=== PATIENT | male | born 1960 | race Caucasian/White ===

== ENCOUNTER 2025-05-31 14:24 | Outpatient (CLI) | payer MEDICARE, OTHER ==
--- NOTE | 2025-05-31 16:35 | RADIOLOGY REPORT ---
CLINICAL HISTORY: ANOSMIA TECHNIQUE: Routine multiplanar imaging of the brain was performed without gadolinium contrast. 15 mL of Clariscan was injected intravenously. COMPARISON: None FINDINGS: There is no abnormal restricted diffusion to suggest acute infarction. There are scattered T2 hyperintense foci within the white matter both cerebral hemispheres, which are most compatible with and minimal burden of nonspecific chronic small vessel ischemic change. There is no evidence for acute ischemic changes, mass, mass effect, or extra- axial fluid collection. There is no hydrocephalus or midline shift. The cerebral sulci and subarachnoid cisterns are not effaced. The imaged paranasal sinuses are clear. The globes are intact. The midline structures, including the corpus callosum, are unremarkable. The intracranial flow voids are maintained. There is no concerning post-contrast enhancement. IMPRESSION: No acute intracranial abnormality seen. No evidence for acute infarct. Minimal chronic small vessel ischemic changes.
[2025-05-31] MEDS ORDERED: GADOTERATE MEGLUMINE 7.5 MMOL/15 ML VIAL IV ONE (17:26)
== END 2025-05-31 23:59 | disposition home or self-care (01) ==
LOC: MRI 14:24
PROVIDERS: ATTEND Physician Assistant
DX: R43.0 Anosmia (principal)
CPT/HCPCS: 70553; A9575

== ENCOUNTER 2025-06-11 13:06 | Outpatient (CLI) | payer MEDICARE, OTHER ==
--- NOTE | 2025-06-11 14:09 | RADIOLOGY REPORT ---
Procedure: CT CT CHEST LOW DOSE Reason for study/Clinical History: PERSONAL HISTORY OF NICOTINE DEPENDENCE COMPARISON: None TECHNIQUE: Multidetector CT of the chest was performed from the lung apices to the upper abdomen without the use of intravenous contract. Axial, coronal and sagittal multiplanar reformats were performed. Radiation Dose Information: CT Dose: CTDI volume is 3.7 mGy. Dose-length product is 148 mGy*cm The dose indicators for CT are the volume Computed Tomography (CT) Dose Index (CTDIvol) and the Dose Length Product (DLP), and are measured in units of mGy and mGy-cm, respectively. These indicators are not patient dose, but values generated from the CT scanner acquisition factors. The report includes radiation exposure data for exposures received during this examination. FINDINGS: Lower neck: Normal thyroid. Lungs: No focal consolidation. No suspicious pulmonary nodules Heart/Vascular Structures: Normal heart size. No pericardial effusion. Lymph Nodes: No adenopathy Pleura: No pleural effusion or significant pneumothorax. Musculoskeletal: No acute osseous abnormality. T8 vertebral body kyphoplasty changes. Soft tissues: Normal. Upper abdomen: Limited portions of the upper abdomen are unremarkable. IMPRESSION: No suspicious pulmonary nodule. LUNG RADS Category 1: Continue annual screening with LDCT
== END 2025-06-11 23:59 | disposition home or self-care (01) ==
LOC: RAD 13:06
DX: Z12.2 Encounter for screening for malignant neoplasm of respiratory organs (principal); Z87.891 Personal history of nicotine dependence
CPT/HCPCS: 71271